=== PATIENT | male | born 2000 | race Caucasian/White ===

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

== ENCOUNTER 2021-05-28 11:59 | Outpatient (REF) | payer MEDICAID, SELFPAY ==
[2021-05-30 13:39] LABS: GC Result Negative (Negative)
[2021-05-30 16:12] LABS: Chlamydia Result Positive (Negative)
== END 2021-05-28 12:00 | disposition home or self-care (01) ==
LOC: NCHCN 11:59
PROVIDERS: PCP Specialist/Technologist Athletic Trainer; Visit Provider Nurse Practitioner Family
DX: Z00.00 Encounter for general adult medical examination without abnormal findings (principal); Z68.41 Body mass index [BMI] 40.0-44.9, adult; Z72.0 Tobacco use
CPT/HCPCS: 87491; 87591

== ENCOUNTER 2021-08-22 17:12 | Outpatient (REF) | payer MEDICAID, SELFPAY ==
[2021-08-24 16:43] LABS: Chlamydia Result Negative (Negative); GC Result Negative (Negative)
== END 2021-08-22 17:13 | disposition home or self-care (01) ==
LOC: NCHCN 17:12
PROVIDERS: PCP Specialist/Technologist Athletic Trainer; Visit Provider Nurse Practitioner Family
DX: A56.2 Chlamydial infection of genitourinary tract, unspecified (principal)
CPT/HCPCS: 87491; 87591

== ENCOUNTER 2024-08-18 12:26 | Emergency (ER) | payer OTHER, SELFPAY ==
[2024-08-18 12:30] VITALS: BP 152/85; PULSE 60; RESP 20; TEMP 36.5; O2SAT 99
--- NOTE | 2024-08-18 12:45 | DI.CT_ITS ---
Exam(s) CT HEAD FACIAL WO EXAM: CT HEAD FACIAL WO CLINICAL HISTORY: large truck part fell on face/head, ?LOC, R maxill. TECHNIQUE: Imaging Protocol: Axial computed tomography images with coronal and sagittal reformatted images were created and reviewed COMPARISON: No exams were available for comparison FINDINGS: BRAIN: There are no skull fractures nor fluid in the visualized paranasal sinuses. There is no evidence of intracranial hemorrhage, mass effect, or shift of midline structures. There are no extra-axial fluid collections. The ventricles are not enlarged or shifted and there is no blo od within the ventricular system nor within the basal cisterns. MAXILLOFACIAL CT SCAN: There is no evidence of facial fractures. No evidence of orbital blowout fracture. No nasal bone fr acture. There is some mucosal thickening in the anterior aspect of the right maxillary sinus, seo consultant ior-inferior aspect the left maxillary sinus as well as within the left sphenoid sinus. No true flui d levels. Zygomatic arches are intact.. No abnormal findings in the orbits.. IMPRESSION: No acute intracranial findings on this noninfused CT scan of the brain.No skull fractures. No evidence of facial bone fractures nor orbital fractures. Incidentally noted is multilevel mucosal thickening in maxillary and left sphenoid sinuses. Called by myself to ER provider 08/18/2024 at 1:19 p.m. RADIATION DOSE DELIVERED: 1,504.85mGy.cm Total DLP DATA REPOSITORY: All CT scans at this facility are submitted to the National Radiology Data Registry (NRDR) Dose Index Registry (DIR) with the [employer] ([employer]). RADIATION OPTIMIZATION: All CT scans at this facility use at least one of these dose optimization te chniques: automated exposure control; mA and/or kV adjustment per patient size (includes targeted exa ms where dose is matched to clinical indication); or iterative reconstruction.
--- NOTE | 2024-08-18 12:47 | W.ED.GENAD ---
Discharge Plan Disposition Patient Disposition: Home Condition: Stable Discharge Details Clinical Impression: Lip laceration Primary Care Provider: Norman Rodríguez ED Provider: Colton Sorensen Home Meds and New Rx's Prescriptions: Continued ibuprofen 800 mg tablet 800 mg PO TID Qty: 21 0RF Zyrtec 10 MG capsule 10 mg PO DAILY Qty: 30 2RF Rx Instructions: take 1 tab daily as needed during allergy season Discharge Instructions Instructions: Laceration Repair With Stitches ED, Concussion, Adult ED Additional Instructions: You were seen in the emergency department for your facial injury with lip laceration that was repaired by 1 suture. This will need to be removed in 7 to 10 days. Please return earlier for any signs of infection including increasing redness, purulent drainage from the area, fever. Your CT was negative for any facial fracture, please take Tylenol for any headaches, you may have a mild concussion-please return for any worsening neurologic status Referrals: Norman Rodríguez [Primary Care Provider] - HPI General Date/Time Provider Initiated Documentation: 08/18/24 12:47. HPI Narrative: 24 year-old male presents to ED today by POV/ambulating with a chief complaint of R sided facial injury with onset just prior to arrival - he was working on large truck, and detached a large tank while underneath the truck- some scattered debris was falling on his face and he accidentally let go of a 5-6lb metal tank which struck him in the R face. Quality described as R upper gum pain at canine, small lip laceration, denies severe headache but questions if he had a brief LOC, no radiation to nausea, repetitive questioning, coordination difficulty, visual changes. Severity is described as minor/10. Palliating factors include nothing specific attempted. Provoking factors include nothing specific. Events leading up to the incident/Associated Symptoms: Tdap status unknown. Patient not anticoagulated. Related Data Home Medications ?Medication ?Instructions ?Recorded ?Confirmed cetirizine 10 mg capsule (Zyrtec) 10 mg PO DAILY #30 tab-caps 01/30/18 08/18/24 ibuprofen 800 mg tablet 800 mg PO TID #21 tabs 01/05/19 08/18/24 Previous Rx's ?Medication ?Instructions ?Recorded cetirizine 10 mg capsule (Zyrtec) 10 mg PO DAILY #30 tab-caps 01/30/18 ibuprofen 800 mg tablet 800 mg PO TID #21 tabs 01/05/19 Allergies Allergy/AdvReac Type Severity Reaction Status Date / Time doxycycline AdvReac Mild Unknown Unverified 08/18/24 12:35 General Stated Complaint: HeadInjury QUAN: 3 Review of Systems All systems reviewed & are unremarkable except as noted in HPI and below Exam Narrative Exam Narrative: GENERAL APPEARANCE: Well-nourished, non-toxic, awake and alert, atraumatic, no acute distress. SKIN: Warm, pink, dry, intact, without rashes/lesions/ulcerations. HEAD: Normocephalic, normal hair distribution for gender/age. EYES: Normal conjunctiva, no exudates on lids/lashes. ENT: Nares patent, no circumoral cyanosis, no facial swelling, small 0.3cm laceration to central R upper lip crossing the cristopher border, pain in gums at R upper #7 tooth but no visible trauma or palpable defect, no loose tooth NECK: Supple, trachea midline, painless cervical ROM, no midline vertebral tenderness. LUNGS/CHEST: Non-labored respirations, normal A/P diameter, symmetrical expansion, no chest wall deformity HEART (CV/PV): Regular rate and rhythm without murmur, no peripheral edema, no JVD. ABDOMEN: Soft, non-distended, no guarding. MSK: Normal ROM, no swelling/deformity to bilateral UEs or LEs, moving all extremities without weakness, no cyanosis, spine midline without tenderness, normal curvature. NEURO: Mental Status AAOx4 - alert to person, place, time, events No facial droop, no forehead involvement. Motor: No focal weakness - strength 5/5 in bilateral UEs and LEs, proximal and distal, symmetric. Sensory: sensation intact to light touch globally. Gait normal: patient ambulated without ataxia into ED room. PSYCH: euthymic, cooperative, pleasant, appropriate speech Course Vital Signs Vital signs: Vital Signs Temperature 36.5 C 08/18/24 12:30 Pulse 60 08/18/24 12:30 Respiratory Rate 20 08/18/24 12:30 Blood Pressure 152/85 H 08/18/24 12:30 Pulse Oximetry 99 08/18/24 12:30 Temperature 36.5 C 08/18/24 12:30 Pulse 60 08/18/24 12:30 Respiratory Rate 20 08/18/24 12:30 Respiratory Effort Normal 08/18/24 12:34 Blood Pressure 152/85 H 08/18/24 12:30 Blood Pressure Position Sitting 08/18/24 12:30 Pulse Oximetry 99 08/18/24 12:30 Oxygen Delivery Method Room Air 08/18/24 12:30 Oxygen Flow Rate 0 08/18/24 12:30 Procedures Laceration Laceration 1: Site: lip Side (If applicable): right Size (cm): 0.3 Description: linear Depth: simple, single layer Local anesthetic: LET(lidocaine epinephrine tetracaine) Pre-repair: wound explored, irrigated extensively and deep structures intact Skin layer closed with: nylon Size (cm): 6-0 Number of sutures: 1 Technique: simple, interrupted Medical Decision Making This dictation utilizes [id number] dictation software and may contain unedited grammatical errors. 24 year-old male presents to ED today by POV/ambulating with a chief complaint of R sided facial injury with onset just prior to arrival - he was working on large truck, and detached a large tank while underneath the truck- some scattered debris was falling on his face and he accidentally let go of a 5-6lb metal tank which struck him in the R face. Quality described as R upper gum pain at canine, small lip laceration, denies severe headache but questions if he had a brief LOC, no radiation to nausea, repetitive questioning, coordination difficulty, visual changes. Severity is described as minor/10. Palliating factors include nothing specific attempted. Provoking factors include nothing specific. Events leading up to the incident/Associated Symptoms: Tdap status unknown. Patients' medical history: noncontributory. 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 Pertinent exam findings / vital signs include small 0.3cm laceration to central R upper lip crossing the cristopher border, pain in gums at R upper #7 tooth but no visible trauma or palpable defect, no loose tooth. Differential / pathologies of concern include ICH vs concussion (significant mechanism), laceration, maxillary trauma. Diagnostic studies of: -CT Head & Facial Bones wo Contrast - shows no ICH, no facial fracture. Interventions of: -LET gel for laceration repair. ED Course/Assessment/Plan: 24-year-old male was working on a [employer] trailer truck when a large part fell onto his face while he was laying beneath the truck, has some gingival pain above the #7 tooth but the tooth is stable and there is no visible trauma, overlying this area he has a 0.3 cm lip laceration that was repaired by 1 suture of 6-0 Prolene without issue. I counseled him on return for signs of infection and return for suture removal in 7 to 10 days. Findings not consistent with facial fracture, ICH, concussion syndrome at this time. Disposition of Lip Laceration. Patient verbalized understanding of the plan and return to ED criteria and engaged in shared decision making. Medical Records Medical records reviewed: Yes I reviewed the patient's medical records. Imaging Data Radiologic Study: Attestation: I personally reviewed and interpreted this imaging study as follows: Imaging: CT Scan Radiologist's impression: EXAM: CT HEAD FACIAL WO CLINICAL HISTORY: large truck part fell on face/head, ?LOC, R maxill. TECHNIQUE: Imaging Protocol: Axial computed tomography images with coronal and sagittal reformatted images were created and reviewed COMPARISON: No exams were available for comparison FINDINGS: BRAIN: There are no skull fractures nor fluid in the visualized paranasal sinuses. There is no evidence of intracranial hemorrhage, mass effect, or shift of midline structures. There are no extra-axial fluid collections. The ventricles are not enlarged or shifted and there is no blood within the ventricular system nor within the basal cisterns. MAXILLOFACIAL CT SCAN: There is no evidence of facial fractures. No evidence of orbital blowout fracture. No nasal bone fracture. There is some mucosal thickening in the anterior aspect of the right maxillary sinus, posterior-inferior aspect the left maxillary sinus as well as within the left sphenoid sinus. No true fluid levels. Zygomatic arches are intact.. No abnormal findings in the orbits.. IMPRESSION: No acute intracranial findings on this noninfused CT scan of the brain.No skull fractures. No evidence of facial bone fractures nor orbital fractures. Incidentally noted is multilevel mucosal thickening in maxillary and left sphenoid sinuses. Quality:SDOH Health Related Social Needs: No Data to Display PFSH All Active Problems (Updated 08/18/24 @ 13:54 by MICHELE Howard) Lip laceration (Acute) Acanthosis nigricans (Acute) Acne vulgaris (Acute 08/16/16) Allergic rhinitis (Acute 03/18/13) environmental allergies Constipation (Acute) Herpes simplex (Acute 08/30/11) neck lesion 06/18, 02/19 Ingrowing toenail (Acute 04/06/13) Routine sports examination for healthy child or adolescent (Acute 08/16/16) Depression (Acute 02/08/14) Medical History (Updated 08/18/24 @ 13:54 by MICHELE Howard) elevated bmi Acne Surgical History Endoscopy Family History Father , LEUKEMIA No problems noted. Mother No problems noted. GRANDPARENT Heart disease Neoplasm Social History Smoking/Tobacco Use Status: Current every day Tobacco Type: cigarettes Smoking packs per day: 1 Smoking cigarettes per day: 20.0 Smoking risk assessment performed?: Yes Alcohol Intake: current Alcohol Intake frequency: holidays/special occasions only Drug use: Rarely Substance use type: marijuana Details: last marijuana use 2 weeks ago, had 3 beers last night Do you feel safe at home: Yes Do you feel safe in your relationship?: Yes
[2024-08-18] MEDS: Lidocaine/Epinephri/Tetracaine Topical Gel 3 ML TP (13:26)
== END 2024-08-18 14:17 | disposition home or self-care (01) ==
LOC: ER 14:24
PROVIDERS: Emergency Provider Physician Assistant; PCP Specialist/Technologist Athletic Trainer
DX: S01.511A Laceration without foreign body of lip, initial encounter (principal); W20.8XXA Other cause of strike by thrown, projected or falling object, initial encounter; Y93.89 Activity, other specified; Y92.69 Other specified industrial and construction area as the place of occurrence of the external cause; Y99.0 Civilian activity done for income or pay
CPT/HCPCS: 12011; 99284; 70450; 70486; 99283